=== PATIENT | male | born 1990 | race Caucasian/White ===

== ENCOUNTER 2018-01-26 01:07 | Observation (INO) | payer SELFPAY ==
[~2018-01-26] VITALS: Ht 185.4 cm; Wt 83.8 kg
[2018-01-26] VITALS (11 sets, daily range): BP systolic 125–173; BP diastolic 69–104; PULSE 72–112; RESP 15–18; TEMP 96.7–97.9; O2SAT 93–100
[~2018-01-26 01:07] MED LIST: NEXI10GR PO; PROC1TAB8 PO; RANI150 PO
[2018-01-26] MEDS ORDERED: SODIUM CHLOR 0.9% 1000 ML INJ 1,000 ML IV SCH ×2 (03:14→04:29)
[2018-01-26] MEDS ORDERED: SODIUM CHLORIDE 0.9% FLUSH 10 ML FLUSH IV FLUSH PRN ×3 (03:15→04:30)
[2018-01-26] MEDS ORDERED: PANTOPRAZOLE SODIUM 40 MG VIAL IVP ONE (03:15)
[2018-01-26] MEDS ORDERED: PROCHLORPERAZINE INJ 10 MG/2 ML VIAL IV PUSH ONE (03:15)
[2018-01-26] MEDS ORDERED: FAMOTIDINE 20 MG/2 ML VIAL IV PUSH ONE (03:15)
--- NOTE | 2018-01-26 03:17 | PD ---
HPI Chief Complaint: GI Complaint Time Seen by Provider: 03:10 Travel History International Travel<30 days: No Contact w/Intl Traveler<30days: No Traveled to known affect area: No History of Present Illness HPI The patient is a 27-year-old male that has been vomiting for 3 days. He has a history of this in the past. He denies any fever or diarrhea. He does not have any primary care physician or health analytics consultant. He denies vomiting any blood. He has midline epigastric pain described as burning pain, a 7/10. He denies any melanotic or bloody stools. PFSH Past Medical History Asthma: Yes ( A CHILD, RESOLVED) Cancer: No Cardiovascular Problems: No Diminished Hearing: No Endocrine: No Gastrointestinal Disorders: Yes GERD: Yes Genitourinary: No Hiatal Hernia: Yes ( A CHILD, REPAIRED AT THE AGE OF 2) Immune Disorder: No Musculoskeletal: No Neurologic: No Psychiatric: No Reproductive: No Respiratory: Yes Sickle Cell Disease: No Ulcer: No Influenza Vaccination: Yes Past Surgical History Abdominal Surgery: Yes (umbilical HERNIA) Cardiac Surgery: No Ear Surgery: No Endocrine Surgery: No Eye Surgery: No Genitourinary Surgery: No Oral Surgery: No Thoracic Surgery: No Other Surgery: Yes Social History Alcohol Use: Yes (2 TIMES PER WEEK) Tobacco Use: Yes (1/2 PPD) Substance Use: Yes (Marijuana) Allergies-Medications (Allergen,Severity, Reaction): Coded Allergies: amoxicillin (Verified Allergy, Severe, rash, 01/26/18) ondansetron (Verified Allergy, Intermediate, Nausea/Vomiting, 01/26/18) Reported Meds & Prescriptions Reported Meds & Active Scripts Active Review of Systems Except as stated in HPI: all other systems reviewed are Neg Physical Exam Narrative GENERAL: The patient appears moderately dehydrated, alert, oriented 3 in moderate apparent distress with his midline epigastric pain. He has vomiting here in the emergency department. His vital signs show blood pressure 142/104 with heart rate of 112 but otherwise are normal. SKIN: Focused skin assessment warm/dry. HEAD: Atraumatic. Normocephalic. EYES: Pupils equal and round. No scleral icterus. No injection or drainage. ENT: No nasal bleeding or discharge. Mucous membranes pink and moist. NECK: Trachea midline. No JVD. CARDIOVASCULAR: Regular rate and rhythm. No murmur appreciated. RESPIRATORY: No accessory muscle use. Clear to auscultation. Breath sounds equal bilaterally. GASTROINTESTINAL: Abdomen soft, with tenderness to direct palpation in the midline epigastrium, nondistended. Hepatic and splenic margins not palpable. No guarding or rebound is present. MUSCULOSKELETAL: No obvious deformities. No clubbing. No cyanosis. No edema. NEUROLOGICAL: Awake and alert. No obvious cranial nerve deficits. Motor grossly within normal limits. Normal speech. PSYCHIATRIC: Appropriate mood and affect; insight and judgment normal. Data Data Last Documented VS Vital Signs Date Time Temp Pulse Resp B/P (MAP) Pulse Ox O2 Delivery O2 Flow Rate FiO2 01/26/18 03:45 72 18 95 Room Air 01/26/18 01:45 97.9 Orders Orders Sodium Chlor 0.9% 1000 Ml Inj (Ns 1000 M (01/26/18 03:15) Prochlorperazine Inj (Compazine Inj) (01/26/18 03:15) Complete Blood Count With Diff (01/26/18 03:14) Comprehensive Metabolic Panel (01/26/18 03:14) Lipase (01/26/18 03:14) Urinalysis - C+S If Indicated (01/26/18 03:14) Iv Access Insert/Monitor (01/26/18 03:14) Ecg Monitoring (01/26/18 03:14) Oximetry (01/26/18 03:14) Pantoprazole Inj (Protonix Inj) (01/26/18 03:15) Sodium Chlor 0.9% 1000 Ml Inj (Ns 1000 M (01/26/18 03:14) Sodium Chloride 0.9% Flush (Ns Flush) (01/26/18 03:15) Famotidine Inj (Pepcid Inj) (01/26/18 03:15) Ct Abd/Pel W Iv Contrast(Rout) (01/26/18 04:17) Sodium Chloride 0.9% Flush (Ns Flush) (01/26/18 04:30) Labs Laboratory Tests Test 01/26/18 03:00 White Blood Count 11.8 TH/MM3 Red Blood Count 5.98 MIL/MM3 Hemoglobin 18.2 GM/DL Hematocrit 53.8 % Mean Corpuscular Volume 90.0 FL Mean Corpuscular Hemoglobin 30.4 PG Mean Corpuscular Hemoglobin Concent 33.8 % Red Cell Distribution Width 13.1 % Platelet Count 225 TH/MM3 Mean Platelet Volume 9.1 FL Neutrophils (%) (Auto) 67.2 % Lymphocytes (%) (Auto) 20.5 % Monocytes (%) (Auto) 11.3 % Eosinophils (%) (Auto) 0.3 % Basophils (%) (Auto) 0.7 % Neutrophils # (Auto) 8.0 TH/MM3 Lymphocytes # (Auto) 2.4 TH/MM3 Monocytes # (Auto) 1.3 TH/MM3 Eosinophils # (Auto) 0.0 TH/MM3 Basophils # (Auto) 0.1 TH/MM3 CBC Comment DIFF FINAL Differential Comment Blood Urea Nitrogen 14 MG/DL Creatinine 0.99 MG/DL Random Glucose 114 MG/DL Total Protein 8.8 GM/DL Albumin 4.7 GM/DL Calcium Level 9.9 MG/DL Alkaline Phosphatase 75 U/L Aspartate Amino Transf (AST/SGOT) 17 U/L Alanine Aminotransferase (ALT/SGPT) 28 U/L Total Bilirubin 3.4 MG/DL Sodium Level 134 MEQ/L Potassium Level 3.2 MEQ/L Chloride Level 95 MEQ/L Carbon Dioxide Level 25.5 MEQ/L Anion Gap 14 MEQ/L Estimat Glomerular Filtration Rate 91 ML/MIN Lipase 173 U/L MDM Medical Decision Making Medical Screen Exam Complete: Yes Emergency Medical Condition: Yes Medical Record Reviewed: Yes Interpretation(s) The CBC shows a white count of 11,800 with a hemoglobin of 18.2 and hematocrit of 53.8. The complete metabolic profile shows a total protein of 8.8 and total bilirubin of 3.4 and sodium of 134 with potassium 3.2 but is otherwise unremarkable. The lipase is normal. Differential Diagnosis Gastritis, gastroenteritis, cholecystitis, cholelithiasis with colic, dehydration, electrolyte disorder, pancreatitis Narrative Course The patient has gastritis. He still feels bad, even after his nausea is controlled with Compazine and he has had 3 L of fluid. His hemoglobin and hematocrit reflect hemoconcentration from the dehydration and his white count elevation is likely due to dehydration. It is very unlikely that by mouth pills or per rectal suppositories will work in this individual. In the past he has failed with at-home treatment and he knows he will fail again with at-home treatment. He has needed admission in the past with IV fluids/hydration and IV antibiotics. I discussed the patient with Dr. Duffy, the patient will be 23 hour observation to her. Diagnosis Primary Impression: Gastritis Additional Impression: Moderate dehydration Admitting Information Admitting Physician Requests: Observation Kole Fuentes MD Jan 26, 2018 03:17
[2018-01-26] MEDS: SODIUM CHLOR 0.9% 1000 ML INJ 1,000 ML IV SCH ×2 (03:28→05:07)
[2018-01-26 03:46] LABS: BASOPHIL # 0.1 TH/MM3 (0-0.2); BASOPHIL % 0.7 % (0.0-2.0); EOSINOPHIL % 0.3 % (0.0-4.0); HEMATOCRIT 53.8 % (39.0-51.0); HEMOGLOBIN 18.2 GM/DL (13.0-17.0); LYMPH % 20.5 % (9.0-44.0); LYMPHOCYTE # 2.4 TH/MM3 (1.0-4.8); MEAN CORPUSCULAR HEMOGLOBIN 30.4 PG (27.0-34.0); MEAN CORPUSCULAR HGB CONC 33.8 % (32.0-36.0); MEAN PLATELET VOLUME 9.1 FL (7.0-11.0); MONO % 11.3 % (0.0-8.0); MONOCYTE # 1.3 TH/MM3 (0-0.9); NEUT % 67.2 % (16.0-70.0); PLATELET COUNT 225 TH/MM3 (150-450); RED BLOOD COUNT 5.98 MIL/MM3 (4.50-5.90); RED CELL DISTRIBUTION WIDTH 13.1 % (11.6-17.2); WHITE BLOOD COUNT 11.8 TH/MM3 (4.0-11.0)
[2018-01-26 03:56] LABS: CHLORIDE 95 MEQ/L (98-107); SODIUM (NA) 134 MEQ/L (136-145)
[2018-01-26 04:00] LABS: ALBUMIN 4.7 GM/DL (3.4-5.0); BICARBONATE 25.5 MEQ/L (21.0-32.0); BLOOD UREA NITROGEN 14 MG/DL (7-18); CALCIUM 9.9 MG/DL (8.5-10.1); GLUCOSE,RANDOM 114 MG/DL (74-106)
[2018-01-26 04:03] LABS: ALT (GPT) 28 U/L (12-78); AST (GOT) 17 U/L (15-37); CREATININE 0.99 MG/DL (0.60-1.30); GLOMERULAR FILTRATION RATE 91 ML/MIN (>89)
[2018-01-26 04:05] LABS: TOTAL BILIRUBIN ADULT 3.4 MG/DL (0.2-1.0); TOTAL PROTEIN 8.8 GM/DL (6.4-8.2)
[2018-01-26 04:06] LABS: ALKALINE PHOSPHATASE 75 U/L (45-117)
[2018-01-26] MEDS ORDERED: MORPHINE SULFATE 4 MG/ML INJ IV PUSH PRN (04:30)
[2018-01-26] MEDS ORDERED: SENNOSIDES 8.6 MG TAB PO PRN (04:30)
[2018-01-26] MEDS ORDERED: LACTULOSE SYRUP 20 GM/30 ML CUP PO PRN (04:30)
[2018-01-26] MEDS ORDERED: ACETAMINOPHEN/HYDROcodone 325 MG/5 MG TAB PO PRN (04:30)
[2018-01-26] MEDS ORDERED: MAGNESIUM HYDROXIDE SUSP 30 ML CUP PO PRN (04:30)
[2018-01-26] MEDS ORDERED: BISACODYL 10 MG SUPP RECTAL PRN (04:30)
[2018-01-26] MEDS ORDERED: ACETAMINOPHEN 325 MG TAB PO PRN (04:30)
[2018-01-26] MEDS ORDERED: IOHEXOL 350 MG/ML 10 ML VIAL (for RAD DIAG) IVCONTRAST ONE (04:43)
--- NOTE | 2018-01-26 05:27 | RADRPT ---
EXAM DATE/TIME: 01/26/2018 04:49 [place] COMPARISON: No previous studies available for comparison. INDICATIONS : Epigastric pain with vomiting past 2 days. IV CONTRAST: 90 cc Omnipaque 350 (iohexol) IV ORAL CONTRAST: No oral contrast ingested. RADIATION DOSE: 9.47 CTDIvol (mGy) MEDICAL HISTORY : Gastroesophageal reflux disease. SURGICAL HISTORY : Umbilical hernia repair. ENCOUNTER: Initial ACUITY: 2 days PAIN SCALE: 7/10 LOCATION: epigastric TECHNIQUE: Volumetric scanning of the abdomen and pelvis was performed. Using automated exposure control and ad justment of the mA and/or kV according to patient size, radiation dose was kept as low as reasonably achievable to obtain optimal diagnostic quality images. DICOM format image data is available electro nically for review and comparison. FINDINGS: Examination of the lung bases demonstrates no abnormality. No pleural fluid is identified. No pulmona ry nodules are present. The liver and spleen are free of focal defects. The gallbladder and pancreas demonstrate no abnormality. The adrenal glands are normal. The kidneys demonstrate no evidence of carlyle id renal mass or hydronephrosis. No free fluid or abdominal masses are identified. No para-aortic barbara nopathy is seen. Examination of the right lower quadrant demonstrates no abnormality. The appendix is identified and appears normal. Examination of the pelvis demonstrates no evidence of free fluid or pelvic mass. No abnormally enlarg ed inguinal or retroperitoneal lymph nodes are present. The bladder is unremarkable. CONCLUSION: 1. No evidence of acute abdominal or pelvic process. No masses are identified. Dev Kerns MD on January 26, 2018 at 5:23 Board Certified Radiologist. This report was verified electronically.
[2018-01-26 05:29] LABS: BILIRUBIN, URINE NEG (NEG); BLOOD, URINE NEG (NEG); GLUCOSE,URINE NEG (NEG); KETONE, URINE 40 mg/dL (NEG); NITRITE,URINE NEG (NEG); URINE COLOR YELLOW (YELLW/STRAW); URINE LEUKOCYTE ESTERASE NEG (NEG)
[2018-01-26 05:37] LABS: RBC, URINE 0-2 /hpf (0-3); SQUAMOUS EPITHELIAL CELL URINE 0-5 /hpf (0-5); WBC, URINE 0-2 /hpf (0-5)
[2018-01-26] MEDS: DOCUSATE SODIUM 50 MG/SENNA 8.6 MG TAB PO SCH ×2 (08:23→20:26)
[2018-01-26] MEDS: SODIUM CHLORIDE 0.9% FLUSH 10 ML FLUSH IV FLUSH SCH ×2 (08:23→19:33)
--- NOTE | 2018-01-26 09:58 | HHI.HP ---
[facility] Primary Care Physician No Primary Care Physician Admission Diagnosis Gastritis, moderate dehydration Diagnoses: Chief Complaint: Nausea, vomiting. Travel History International Travel<30 Days: No Contact w/Intl Traveler <30 Da: No Traveled to Known Affected Are: No History of Present Illness This is a 27-year-old male with past medical history of gastritis and previous history of nausea and vomiting presents complaining of intractable nausea and vomiting which started 3 days ago on Sunday. The patient states that he had a chili hotdog to eat and then afterwards felt very nauseous and started vomiting. Patient states that he had umbilical pain which she describes a stabbing, colicky, nonradiating without any orquidea alleviating or aggravating factors. Patient denies fevers but states he had some chills. Patient describes vomiting as bilious. Patient states that he has been feeling nauseous for a long time and has had multiple studies including an EGD last year. The patient states that he smokes marijuana twice a day and he has been doing that for a long time. The patient states that he feels marijuana helps his nausea that he experiences very often. Review of Systems As per HPI, other systems reviewed by me and negative. Past Family Social History Past Medical History 1. Gastritis. 2. Previous history of intractable nausea and vomiting. 3. History of alcohol abuse as per medical records. 4. Chronic marijuana use. Past Surgical History 1. Hernia repair when he was 2 years old. 2. Cholecystectomy. Reported Medications None Allergies: Coded Allergies: amoxicillin (Verified Allergy, Severe, rash, 01/26/18) ondansetron (Verified Allergy, Intermediate, Nausea/Vomiting, 01/26/18) Active Ordered Medications Current Medications Medications (Trade) Dose Ordered Sig/Orlin Route Start Time Stop Time Status Last Admin Sodium Chloride 1,000 ml @ 100 mls/hr Q10H IV 01/26/18 04:29 (NS Flush) 2 ml UNSCH PRN IV FLUSH 01/26/18 04:30 (NS Flush) 2 ml BID IV FLUSH 01/26/18 09:00 (Reglan Inj) 10 mg Q6H PRN IV PUSH 4/14/18 04:30 (Tylenol) 650 mg Q6H PRN PO 01/26/18 04:30 ([place] 5-325 Mg) 1 tab Q4H PRN PO 01/26/18 04:30 (Morphine Inj) 2 mg Q3H PRN IV PUSH 01/26/18 04:30 (Alie-Colace) 1 tab BID PO 01/26/18 09:00 (Milk Of Magnesia Liq) 30 ml Q12H PRN PO 01/26/18 04:30 (Senokot) 17.2 mg Q12H PRN PO 01/26/18 04:30 (Dulcolax Supp) 10 mg DAILY PRN RECTAL 01/26/18 04:30 (Lactulose Liq) 30 ml DAILY PRN PO 01/26/18 04:30 Family History Denies family history of hypertension, hyperlipidemia, cancer. Social History The patient smokes half pack per day. The patient drinks alcohol occasionally The patient smokes marijuana times per day. Physical Exam Vital Signs Vital Signs Date Time Temp Pulse Resp B/P (MAP) Pulse Ox O2 Delivery O2 Flow Rate FiO2 01/26/18 08:00 97.0 83 15 139/100 (113) 94 01/26/18 07:07 01/26/18 05:56 94 18 125/79 (94) 97 Room Air 01/26/18 05:00 82 18 148/81 (103) 93 Room Air 01/26/18 03:45 72 18 95 Room Air 01/26/18 03:44 72 18 173/96 (121) 95 Room Air 01/26/18 02:45 102 18 125/89 (101) 99 Room Air 01/26/18 01:45 18 01/26/18 01:45 97.9 91 18 161/101 (121) 98 01/26/18 01:12 97.9 112 16 142/104 (117) 96 Physical Exam GENERAL: This is a well-nourished, well-developed patient, in no apparent distress. SKIN: No rashes, ecchymoses or lesions. Cool and dry. HEAD: Atraumatic. Normocephalic. No temporal or scalp tenderness. EYES: Pupils equal round and reactive. Extraocular motions intact. No scleral icterus. No injection or drainage. ENT: Nose without bleeding, purulent drainage or septal hematoma. Throat without erythema, tonsillar hypertrophy or exudate. Uvula midline. Airway patent. NECK: Trachea midline. No JVD or lymphadenopathy. Supple, nontender, no meningeal signs. CARDIOVASCULAR: Regular rate and rhythm without murmurs, gallops, or rubs. RESPIRATORY: Clear to auscultation. Breath sounds equal bilaterally. No wheezes , rales, or rhonchi. GASTROINTESTINAL: Abdomen soft, mildly tender to palpation of periumbilical region, nondistended. No hepato-splenomegaly, or palpable masses. No guarding. MUSCULOSKELETAL: Extremities without clubbing, cyanosis, or edema. No joint tenderness, effusion, or edema noted. No calf tenderness. Negative Homans sign bilaterally. NEUROLOGICAL: Awake and alert. Cranial nerves II through XII intact. Motor and sensory grossly within normal limits. Five out of 5 muscle strength in all muscle groups. Normal speech. Laboratory Laboratory Tests Test 01/26/18 03:00 01/26/18 05:00 White Blood Count 11.8 Red Blood Count 5.98 Hemoglobin 18.2 Hematocrit 53.8 Mean Corpuscular Volume 90.0 Mean Corpuscular Hemoglobin 30.4 Mean Corpuscular Hemoglobin Concent 33.8 Red Cell Distribution Width 13.1 Platelet Count 225 Mean Platelet Volume 9.1 Neutrophils (%) (Auto) 67.2 Lymphocytes (%) (Auto) 20.5 Monocytes (%) (Auto) 11.3 Eosinophils (%) (Auto) 0.3 Basophils (%) (Auto) 0.7 Neutrophils # (Auto) 8.0 Lymphocytes # (Auto) 2.4 Monocytes # (Auto) 1.3 Eosinophils # (Auto) 0.0 Basophils # (Auto) 0.1 CBC Comment DIFF FINAL Differential Comment Blood Urea Nitrogen 14 Creatinine 0.99 Random Glucose 114 Total Protein 8.8 Albumin 4.7 Calcium Level 9.9 Alkaline Phosphatase 75 Aspartate Amino Transf (AST/SGOT) 17 Alanine Aminotransferase (ALT/SGPT) 28 Total Bilirubin 3.4 Sodium Level 134 Potassium Level 3.2 Chloride Level 95 Carbon Dioxide Level 25.5 Anion Gap 14 Estimat Glomerular Filtration Rate 91 Lipase 173 Urine Color YELLOW Urine Turbidity CLEAR Urine pH 6.0 Urine Specific [place] LESS/EQUAL 1.005 Urine Protein NEG Urine Glucose (UA) NEG Urine Ketones 40 Urine Occult Blood NEG Urine Nitrite NEG Urine Bilirubin NEG Urine Urobilinogen 0.2 Urine Leukocyte Esterase NEG Urine RBC 0-2 Urine WBC 0-2 Urine Squamous Epithelial Cells 0-5 Urine Bacteria NONE Microscopic Urinalysis Comment CULT NOT INDICATED Result Diagram: 01/26/1829901/26/18299 Imaging Last Impressions Abdomen/Pelvis CT 01/26/18416 Signed Impressions: Service Date/Time: Friday, January 26, 2018 04:49 - CONCLUSION: 1. No evidence of acute abdominal or pelvic process. No masses are identified. MD Debbie Whaley VTE Risk Assessment Debbie VTE Risk Assessment: No/Low Risk (score <= 1) Caprini Risk Assessment Model Point Value = 1 Point Value = 2 Point Value = 3 Point Value = 5 Age 41-60 Minor surgery BMI > 25 kg/m2 Swollen legs Varicose veins or History of unexplained or recurrent spontaneous Oral contraceptives or hormone replacement Sepsis (< 1 month) Serious lung disease, including pneumonia (< 1 month) Abnormal pulmonary function Acute myocardial infarction Congestive heart failure (< 1 month) History of inflammatory bowel disease Medical patient at bed rest Age 61-74 Arthroscopic surgery Major open surgery (> 45 min) Laparoscopic surgery (> 45 min) Malignancy Confined to bed (> 72 hours) Immobilizing plaster cast Central venous access Age >= 75 History of VTE Family history of VTE Factor V Leiden Prothrombin [id number] Lupus anticoagulant Anticardiolipin antibodies Elevated serum homocysteine Heparin-induced thrombocytopenia Other congenital or acquired thrombophilia Stroke (< 1 month) Elective arthroplasty Hip, pelvis, or leg fracture Acute spinal cord injury (< 1 month) Prophylaxis Regimen Total Risk Factor Score Risk Level Prophylaxis Regimen 0-1 Low Early ambulation 2 Moderate Order ONE of the following: *Sequential Compression Device (SCD) *Heparin 5000 units SQ BID 3-4 Higher Order ONE of the following medications: *Heparin 5000 units SQ TID *Enoxaparin/Lovenox 40 mg SQ daily (WT < 150 kg, CrCl > 30 mL/min) *Enoxaparin/Lovenox 30 mg SQ daily (WT < 150 kg, CrCl > 10-29 mL/min) *Enoxaparin/Lovenox 30 mg SQ BID (WT < 150 kg, CrCl > 30 mL/min) AND/OR *Sequential Compression Device (SCD) 5 or more Highest Order ONE of the following medications: *Heparin 5000 units SQ TID (Preferred with Epidurals) *Enoxaparin/Lovenox 40 mg SQ daily (WT < 150 kg, CrCl > 30 mL/min) *Enoxaparin/Lovenox 30 mg SQ daily (WT < 150 kg, CrCl > 10-29 mL/min) *Enoxaparin/Lovenox 30 mg SQ BID (WT < 150 kg, CrCl > 30 mL/min) AND *Sequential Compression Device (SCD) Assessment and Plan Problem List: (1) Intractable nausea and vomiting ICD Code: R11.10 - Intractable nausea and vomiting Status: Acute (2) Hypokalemia ICD Code: E87.6 - Hypokalemia Status: Acute (3) Elevated bilirubin ICD Code: E80.6 - Elevated bilirubin Status: Acute (4) Hyponatremia ICD Code: E87.1 - Hypo-osmolality and hyponatremia Status: Acute (5) Marijuana abuse ICD Code: F12.10 - Cannabis abuse, uncomplicated Status: Chronic (6) Smoking 1/2 pack a day or less ICD Code: F17.210 - Nicotine dependence, cigarettes, uncomplicated Status: Chronic Assessment and Plan This is a 27-year-old male with past medical history of alcohol abuse, chronic marijuana use and long-standing history of nausea with vomiting. Presents to [facility] due to intractable nausea vomiting abdominal pain. Place the patient outpatient observation, supportive care with IV fluids. IV Zofran for nausea vomiting. Differential diagnosis includes gastritis, gastroenteritis, gastroparesis, cannabis hyperemesis syndrome. Continue pain control with [place] and morphine IV. GI consultation Clear liquid diet. Hypokalemia likely secondary to decreased oral intake and nausea and vomiting. Replace potassium and monitor BMP. Hyponatremia likely secondary to dehydration. Continue IV fluids in the form of normal saline Patient has elevated bilirubin, will check bilirubin components and a liver ultrasound. Advised marijuana cessation. Advised smoking cessation. SCDs for DVT prophylaxis. Code Status Full code Discussed Condition With Patient. Edgar Cox MD Jan 26, 2018 09:58
[2018-01-26] MEDS ORDERED: POTASSIUM CHLORIDE 10 MEQ CONTROLLED RELEASE TAB PO ONE (10:00)
[2018-01-26] MEDS ORDERED: PANTOPRAZOLE SOD 40 MG DELAYED RELEASE TAB PO SCH (10:30)
[2018-01-26 11:28] LABS: DIRECT BILIRUBIN ADULT 0.3 MG/DL (0.0-0.2)
[2018-01-26 11:30] LABS: INDIRECT BILIRUBIN 2.8 MG/DL (0.0-0.8); TOTAL BILIRUBIN ADULT 3.1 MG/DL (0.2-1.0)
[2018-01-26] MEDS: METOCLOPRAMIDE HCL 10 MG/2 ML VIAL IV PUSH PRN (11:38)
[2018-01-26] MEDS: NS + KCL 20 MEQ INJ 1,000 ML IV SCH ×2 (11:39→20:26)
--- NOTE | 2018-01-26 20:10 | MB ---
cc: Verna Monk MD, Ammar MD DATE: 01/26/2018 REFERRING PHYSICIAN: Dr. Duffy REASON FOR REFERRAL: Nausea and vomiting. HISTORY OF PRESENT ILLNESS: Thank you for the consultation. A 27-year-old male who had history of nausea or vomiting since Sunday after supposedly eating a chili dog. The patient stated that it was severe. He had ____. The patient did not have any hematemesis and currently feels better. He is tolerating his diet. The patient stated that this was accompanied with abdominal discomfort, nonradiating. He apparently had a similar problem in the past. Every few months, he has that and he had multiple episodes of hospital visits and admissions. The patient has been scoped in the past. He said he takes Phenergan from time to time when the symptoms happen and he can control this sometimes. He also smokes marijuana twice daily plus 1/2 a pack a day. He said that the marijuana helped his nausea. Currently, the patient is feeling better. He ate lunch without any nausea or vomiting. REVIEW OF SYSTEMS: All 12-point negative except HPI. PAST MEDICAL HISTORY, SURGICAL HISTORY: 1. Hernia repair and cholecystectomy 2 years ago. 2. History of gastritis, most likely cyclic vomiting syndrome. 3. Alcohol abuse. 4. Chronic use of tobacco and marijuana. ALLERGIES: AMOXICILLIN AND ONDANSETRON. MEDICATIONS: Reviewed in the chart. FAMILY HISTORY: Negative. REVIEW OF SYSTEMS: All 12-point negative except HPI. PHYSICAL EXAMINATION: GENERAL: Alert, oriented, in no acute distress. VITAL SIGNS: Stable. HEENT: Pupils round, reactive to light. NECK: Supple. CHEST: Clear to auscultation and percussion. CARDIAC: Regular rate and rhythm. No murmur or gallop at this time. ABDOMEN: Minimal discomfort in the mid epigastric area, otherwise, positive bowel sounds. No hepatosplenomegaly. No other abnormality. EXTREMITIES: No edema, clubbing or cyanosis. NEUROLOGIC: Neurologically intact. PSYCHIATRIC: Psychologically appropriate. LABORATORY DATA: White count 11.8, hemoglobin 18.2, platelets 225. Liver function tests are normal except total bilirubin 3.1 and indirect bilirubin 2.8. Toxicology positive for marijuana. IMAGING STUDIES: CT scan unremarkable. ASSESSMENT AND PLAN: 1. A 27-year-old male with nausea, vomiting, most likely related to marijuana. Cannot rule out possibility of gastroenteritis, but unlikely. The patient's symptoms have resolved at this time and he is tolerating food well. 2. The patient was advised to avoid marijuana completely and stop smoking and drinking. 3. If he tolerates food, he can be discharged from gastrointestinal perspective. 4. 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 I reviewed his old records as far as liver function test and it is always fluctuating consistent with that when the patient is under stress. 5. A followup can be done to ensure that he is not getting worse and this can be done as an outpatient. MD CECELIA Knight//[email or web address] , 06:16 PM , 06:46 PM
[2018-01-27] VITALS: BP 118/59; PULSE 82; RESP 16; TEMP 97.9; O2SAT 99
[2018-01-27] MEDS: METOCLOPRAMIDE HCL 10 MG/2 ML VIAL IV PUSH PRN (02:54)
[2018-01-27 07:52] LABS: AUTOMATED NEUTROPHIL # 4.4 TH/MM3 (1.8-7.7); BASOPHIL # 0.2 TH/MM3 (0-0.2); BASOPHIL % 2.1 % (0.0-2.0); EOSINOPHIL # 0.1 TH/MM3 (0-0.4); EOSINOPHIL % 1.3 % (0.0-4.0); HEMATOCRIT 43.8 % (39.0-51.0); HEMOGLOBIN 14.6 GM/DL (13.0-17.0); LYMPH % 26.6 % (9.0-44.0); MEAN CELL VOLUME 92.4 FL (80.0-100.0); MEAN CORPUSCULAR HEMOGLOBIN 30.8 PG (27.0-34.0); MEAN CORPUSCULAR HGB CONC 33.3 % (32.0-36.0); MEAN PLATELET VOLUME 8.6 FL (7.0-11.0); MONO % 8.8 % (0.0-8.0); MONOCYTE # 0.6 TH/MM3 (0-0.9); NEUT % 61.2 % (16.0-70.0); PLATELET COUNT 163 TH/MM3 (150-450); RED BLOOD COUNT 4.74 MIL/MM3 (4.50-5.90); RED CELL DISTRIBUTION WIDTH 13.4 % (11.6-17.2); WHITE BLOOD COUNT 7.4 TH/MM3 (4.0-11.0)
[2018-01-27 08:00] VITALS: BP 128/73; PULSE 72; RESP 16; TEMP 97; O2SAT 97
[2018-01-27 08:26] LABS: ALBUMIN 3.8 GM/DL (3.4-5.0); ALKALINE PHOSPHATASE 56 U/L (45-117); ALT (GPT) 22 U/L (12-78); AST (GOT) 11 U/L (15-37); BLOOD UREA NITROGEN 6 MG/DL (7-18); CALCIUM 8.6 MG/DL (8.5-10.1); CHLORIDE 106 MEQ/L (98-107); CREATININE 0.73 MG/DL (0.60-1.30); GLOMERULAR FILTRATION RATE 129 ML/MIN (>89); GLUCOSE,RANDOM 91 MG/DL (74-106); SODIUM (NA) 140 MEQ/L (136-145); TOTAL PROTEIN 6.7 GM/DL (6.4-8.2)
[2018-01-27] MEDS ORDERED: PROM25TA10 PO (08:52)
--- NOTE | 2018-01-27 08:53 | HHI.DCPOC ---
Discharge Care Plan Diagnosis: (1) Gastritis Goals to Promote Your Health * To prevent worsening of your condition and complications * To maintain your health at the optimal level Directions to Meet Your Goals Take your medications as prescribed Follow your dietary instruction Follow activity as directed Keep your appointments as scheduled Take your immunizations and boosters as scheduled If your symptoms worsen call your PCP, if no PCP go to Urgent Care Center or Emergency Room Smoking is Dangerous to Your Health. Avoid second hand smoke Call the 24-hour hour crisis hotline for domestic abuse at Bhavin Fuentes Jan 27, 2018 08:53
--- NOTE | 2018-01-27 09:00 | HHI.DS ---
Discharge Summary Admission Date Jan 26, 2018 at 04:42 Discharge Date: Jan 27, 2018 Admitting Diagnosis Gastritis, moderate dehydration (1) Intractable nausea and vomiting ICD Code: R11.10 - Intractable nausea and vomiting Status: Acute (2) Hypokalemia ICD Code: E87.6 - Hypokalemia Status: Acute (3) Elevated bilirubin ICD Code: E80.6 - Elevated bilirubin Status: Acute (4) Hyponatremia ICD Code: E87.1 - Hypo-osmolality and hyponatremia Status: Acute (5) Marijuana abuse ICD Code: F12.10 - Cannabis abuse, uncomplicated Status: Chronic (6) Smoking 1/2 pack a day or less ICD Code: F17.210 - Nicotine dependence, cigarettes, uncomplicated Status: Chronic Procedures None Brief History - From Admission This is a 27-year-old male with past medical history of gastritis and previous history of nausea and vomiting presents complaining of intractable nausea and vomiting which started 3 days ago on Sunday. The patient states that he had a chili hotdog to eat and then afterwards felt very nauseous and started vomiting. Patient states that he had umbilical pain which she describes a stabbing, colicky, nonradiating without any orquidea alleviating or aggravating factors. Patient denies fevers but states he had some chills. Patient describes vomiting as bilious. Patient states that he has been feeling nauseous for a long time and has had multiple studies including an EGD last year. The patient states that he smokes marijuana twice a day and he has been doing that for a long time. The patient states that he feels marijuana helps his nausea that he experiences very often. CBC/BMP: 01/27/18 0655 01/27/18 0655 Significant Findings Laboratory Tests Test 01/26/18 03:00 01/26/18 05:00 01/27/18 06:55 White Blood Count 11.8 TH/MM3 (4.0-11.0) Red Blood Count 5.98 MIL/MM3 (4.50-5.90) Hemoglobin 18.2 GM/DL (13.0-17.0) Hematocrit 53.8 % (39.0-51.0) Monocytes (%) (Auto) 11.3 % (0.0-8.0) 8.8 % (0.0-8.0) Neutrophils # (Auto) 8.0 TH/MM3 (1.8-7.7) Monocytes # (Auto) 1.3 TH/MM3 (0-0.9) Random Glucose 114 MG/DL (74-106) Total Protein 8.8 GM/DL (6.4-8.2) Total Bilirubin 3.4 MG/DL (0.2-1.0) 2.0 MG/DL (0.2-1.0) Sodium Level 134 MEQ/L (136-145) Potassium Level 3.2 MEQ/L (3.5-5.1) Chloride Level 95 MEQ/L (98-107) Direct Bilirubin 0.3 MG/DL (0.0-0.2) Indirect Bilirubin 2.8 MG/DL (0.0-0.8) Urine Ketones 40 mg/dL (NEG) Basophils (%) (Auto) 2.1 % (0.0-2.0) Blood Urea Nitrogen 6 MG/DL (7-18) Aspartate Amino Transf (AST/SGOT) 11 U/L (15-37) Imaging Last Impressions Abdomen/Pelvis CT 01/26/18 0417 Signed Impressions: Service Date/Time: Friday, January 26, 2018 04:49 - CONCLUSION: 1. No evidence of acute abdominal or pelvic process. No masses are identified. Dev Kerns MD PE at Discharge GENERAL: Well-developed, well-nourished, in no acute distress. alert and orientated HEENT: Head is normocephalic without any lesions or masses noted. Facial features are symmetric. Eyes: Extraocular muscles are intact. Conjunctivae were clear. NECK: Supple without any masses. Trachea midline no deviation. No JVD, CARDIAC: Regular rhythm, regular rate. S1/S2 are heard. No murmurs gallops or rubs. LUNGS: Clear to auscultation bilaterally. No wheeze, rhonchi or rales. No use of accessory muscles on inspiration or expiration. ABDOMEN: Soft, nontender. Nondistended. Bowel sounds heard in all 4 quadrants. No organomegaly or masses. Negative rebound, negative guarding EXTREMITIES: No edema, pulses are equal bilaterally. No cyanosis or clubbing NEUROLOGY: Mood and affect appear appropriate. Cranial nerves II through XII grossly intact. Moving all extremities, speech is clear Hospital Course 27-year-old male who review presented to hospital with 3 day history of nausea, vomiting. Patient states that his symptoms started after he ate a chili dog. He does have chronic abdominal issues with nausea and over the last year he has had endoscopy performed. Patient was recommended observation in the hospital for further recommendations. Patient was started on IV fluids, antinausea medication. Patient tolerated treatment well. GI consult to the patient and indicated that patient needs to quit smoking marijuana due to the cyclic vomiting associated with marijuana use. Patient is doing well. Tolerated diet yesterday and this morning. He has been cleared by pusher runner for discharge. We will plan discharge accordingly. Patient should follow-up with his primary care doctor as well as GI physician if symptoms persist or recur. Pt Condition on Discharge: Stable Discharge Disposition: Discharge Home Discharge Time: > 30 minutes Discharge Instructions DIET: Follow Instructions for: As Tolerated, No Restrictions Activities you can perform: Regular-No Restrictions Follow up Referrals: PCP Follow-up - 1 Week New Medications: Promethazine (Phenergan) 25 Mg Tablet 25 MG PO Q6H PRN for NAUSEA OR VOMITING, #12 TAB 0 Refills Bhavin Fuentes Jan 27, 2018 09:00
== END 2018-01-27 10:36 | disposition home or self-care (01) ==
LOC: PHED 01:07 → PHEDA 04:42 → PH3B 07:20
PROVIDERS: ADMIT Hospitalist; ATTEND Hospitalist
DX: K29.70 Gastritis, unspecified, without bleeding (principal); R11.2 Nausea with vomiting, unspecified; E87.6 Hypokalemia; E86.0 Dehydration; E87.1 Hypo-osmolality and hyponatremia; E80.4 Gilbert syndrome; E80.6 Other disorders of bilirubin metabolism; F12.10 Cannabis abuse, uncomplicated; F17.210 Nicotine dependence, cigarettes, uncomplicated
CPT/HCPCS: 74177; 80053; 81001; 82247; 82248; 83690; 85025; 96361; 96365; 96375; 99285; C9113; G0378; J0780; J2765; J3480; J7030; Q9967

== ENCOUNTER 2018-03-23 16:21 | Emergency (ER) | payer SELFPAY ==
[~2018-03-23] VITALS: Ht 185.4 cm; Wt 83.3 kg
[~2018-03-23 16:21] MED LIST changes: -NEXI10GR PO; -PROC1TAB8 PO; +PROM25TA10 PO; -RANI150 PO
[2018-03-23 16:33] VITALS: BP 153/100; PULSE 101; RESP 16; TEMP 98.8; O2SAT 97
--- NOTE | 2018-03-23 16:56 | PD ---
HPI . Vomiting Chief Complaint: GI Complaint Time Seen by Provider: 16:46 Travel History International Travel<30 days: No Contact w/Intl Traveler<30days: No Traveled to known affect area: No History of Present Illness HPI Patient presents with chief complaint of vomiting. Onset initially was 2 days ago. He reports many episodes of emesis that day. No diarrhea. He felt tired the next day (yesterday) but the vomiting had stopped. It recurred today. He states that he has had too numerous to count episodes of emesis today. No diarrhea. No fever. No known sick contacts. His only associated symptoms are mild abdominal pain and diaphoresis. PFSH Past Medical History Asthma: Yes ( A CHILD, RESOLVED) Cancer: No Cardiovascular Problems: No Diminished Hearing: No Endocrine: No Gastrointestinal Disorders: Yes GERD: Yes Genitourinary: No Hiatal Hernia: Yes ( A CHILD, REPAIRED AT THE AGE OF 2) Immune Disorder: No Musculoskeletal: No Neurologic: No Psychiatric: No Reproductive: No Respiratory: Yes Sickle Cell Disease: No Ulcer: No ?: Not Past Surgical History Abdominal Surgery: Yes (umbilical HERNIA) Cardiac Surgery: No Cholecystectomy: Yes Ear Surgery: No Endocrine Surgery: No Eye Surgery: No Genitourinary Surgery: No Oral Surgery: No Thoracic Surgery: No Other Surgery: Yes Social History Alcohol Use: Yes (2 TIMES PER WEEK) Tobacco Use: Yes (1/2 PPD) Substance Use: Yes (Marijuana) Allergies-Medications (Allergen,Severity, Reaction): Coded Allergies: amoxicillin (Verified Allergy, Severe, rash, 03/23/18) ondansetron (Verified Allergy, Intermediate, Nausea/Vomiting, 03/23/18) Reported Meds & Prescriptions Reported Meds & Active Scripts Active Phenergan Supp (Promethazine HCl) 25 Mg Supp 25 Mg RECTAL Q4H PRN Phenergan (Promethazine HCl) 25 Mg Tablet 25 Mg PO Q6H PRN Review of Systems Except as stated in HPI: all other systems reviewed are Neg Physical Exam Narrative GENERAL: Patient does not look like he feels very well. He is lying very still on the stretcher with an emesis bag on his chest. SKIN: Cool and diaphoretic. HEAD: Normocephalic. EYES: Pupils equal and round. Extraocular movements are intact. No scleral icterus. ENT: Mucous membranes pink but dry. NECK: Supple. Full range of motion without pain.. CARDIOVASCULAR: Regular rate and rhythm. Mild tachycardia. RESPIRATORY: No accessory muscle use. Clear to auscultation. Breath sounds equal bilaterally. GASTROINTESTINAL: Abdomen soft. Nontender. Bowel sounds present. Nondistended. MUSCULOSKELETAL: No obvious deformities. Normal muscle tone. NEUROLOGICAL: Awake and alert. No obvious cranial nerve deficits. Motor grossly within normal limits. Normal speech. PSYCHIATRIC: Appropriate mood and affect; insight and judgment normal. Data Data Last Documented VS Vital Signs Date Time Temp Pulse Resp B/P (MAP) Pulse Ox O2 Delivery O2 Flow Rate FiO2 03/23/18 18:30 65 18 155/89 (111) 100 Room Air 03/23/18 16:33 98.8 Orders Orders ^ Saline Lock (03/23/18 16:52) Sodium Chlor 0.9% 1000 Ml Inj (Ns 1000 M (03/23/18 17:00) Sodium Chlor 0.9% 1000 Ml Inj (Ns 1000 M (03/23/18 17:00) Metoclopramide Inj (Reglan Inj) (03/23/18 17:00) Diphenhydramine Inj (Benadryl Inj) (03/23/18 19:00) MDM Medical Decision Making Medical Screen Exam Complete: Yes Emergency Medical Condition: Yes Differential Diagnosis Differential diagnosis includes but is not limited to viral gastritis, food poisoning, pancreatitis, pneumonia, hepatitis, acute coronary syndrome, Narrative Course Patient presents with nausea and vomiting. He reports numerous episodes today. Patient states that he has been given Zofran in the past and that his vomiting actually gets worse. He states that Reglan has worked well for him in the past. He will be given 2 L of fluid along with IV Reglan. The patient is on his second liter of fluids. He got better for a while but states that the nausea is recurring. I will have him sip on some domingo binu. I have also given him a dose of IV Benadryl. The patient is now resting comfortably. I will discharge him to home with a prescription for Phenergan suppositories. Diagnosis Primary Impression: Intractable nausea and vomiting Qualified Codes: R11.2 - Nausea with vomiting, unspecified Patient Instructions: Acute Nausea and Vomiting (DC), General Instructions Med/Other Pt SpecificInfo: Prescription(s) given Scripts Promethazine Supp (Phenergan Supp) 25 Mg Supp 25 MG RECTAL Q4H Y for NAUSEA OR VOMITING, #6 SUPP 0 Refills Prov: Rosana Marcus MD 03/23/18 Disposition: 01 DISCHARGE HOME Condition: Stable Rosana Marcus MD Mar 23, 2018 16:56
[2018-03-23] MEDS ORDERED: SODIUM CHLOR 0.9% 1000 ML INJ 1,000 ML IV ONE ×2 (17:00)
[2018-03-23] MEDS ORDERED: METOCLOPRAMIDE HCL 10 MG/2 ML VIAL IV PUSH ONE (17:00)
[2018-03-23 18:30] VITALS: BP 155/89; PULSE 65; RESP 18; O2SAT 100
[2018-03-23] MEDS ORDERED: PROM1SUP7 RECTAL (18:47)
[2018-03-23] MEDS ORDERED: diphenhydrAMINE HCL 50 MG/ML VIAL IV PUSH ONE (19:00)
== END 2018-03-23 19:36 | disposition home or self-care (01) ==
LOC: PHED 16:21
DX: R11.2 Nausea with vomiting, unspecified (principal); R10.9 Unspecified abdominal pain; R61 Generalized hyperhidrosis; K21.9 Gastro-esophageal reflux disease without esophagitis; F17.200 Nicotine dependence, unspecified, uncomplicated; F12.90 Cannabis use, unspecified, uncomplicated
CPT/HCPCS: 96361; 96374; 96375; 99284; J1200; J2765; J7030

== ENCOUNTER 2018-03-25 09:57 | Emergency (ER) | payer SELFPAY ==
[~2018-03-25 09:57] MED LIST changes: +PROM1SUP7 RECTAL
[2018-03-25 10:00] VITALS: BP 178/100; PULSE 96; RESP 18; TEMP 98; O2SAT 98
[2018-03-25] MEDS ORDERED: METOCLOPRAMIDE HCL 10 MG/2 ML VIAL IV PUSH ONE ×3 (10:15→12:00)
[2018-03-25] MEDS ORDERED: SODIUM CHLOR 0.9% 1000 ML INJ 1,000 ML IV ONE ×2 (10:15)
--- NOTE | 2018-03-25 10:17 | PD ---
HPI Chief Complaint: Abdominal Pain Time Seen by Provider: 10:06 Travel History International Travel<30 days: No Contact w/Intl Traveler<30days: No Traveled to known affect area: No History of Present Illness HPI This 27-year-old male is complaining of epigastric pain and vomiting. Says his been having these symptoms since . He has had attacks like this in the past. He was admitted in January with these symptoms and at that time he was seen by Dr. Monk. It was thought and might be related to cyclical vomiting. Patient says he only uses occasional marijuana. He has not been having these symptoms for years. He has had a cholecystectomy 2 years ago. He says that the Zofran does not help him at all. He has prescriptions for Reglan and Phenergan at home. He has been vomiting in spite of the Phenergan. He denies recent marijuana use. He was here in January with similar symptoms and had a CT scan which was read as negative PFS Past Medical History Asthma: Yes ( A CHILD, RESOLVED) Cancer: No Cardiovascular Problems: No Diminished Hearing: No Endocrine: No Gastrointestinal Disorders: Yes GERD: Yes Genitourinary: No Hiatal Hernia: Yes ( A CHILD, REPAIRED AT THE AGE OF 2) Immune Disorder: No Musculoskeletal: No Neurologic: No Psychiatric: No Reproductive: No Respiratory: Yes Sickle Cell Disease: No Ulcer: No Influenza Vaccination: Yes Past Surgical History Abdominal Surgery: Yes (umbilical HERNIA) Cardiac Surgery: No Cholecystectomy: Yes Ear Surgery: No Endocrine Surgery: No Eye Surgery: No Genitourinary Surgery: No Oral Surgery: No Thoracic Surgery: No Other Surgery: Yes Social History Alcohol Use: Yes (2 TIMES PER WEEK) Tobacco Use: Yes (1/2 PPD) Substance Use: Yes (Marijuana) Allergies-Medications (Allergen,Severity, Reaction): Coded Allergies: amoxicillin (Verified Allergy, Severe, rash, 03/25/18) ondansetron (Verified Allergy, Intermediate, Nausea/Vomiting, 03/25/18) Reported Meds & Prescriptions Reported Meds & Active Scripts Active Phenergan Supp (Promethazine HCl) 25 Mg Supp 25 Mg RECTAL Q4H PRN Phenergan (Promethazine HCl) 25 Mg Tablet 25 Mg PO Q6H PRN Review of Systems General / Constitutional: No: Fever, Chills Eyes: No: Diploplia, Blurred Vision HENT: No: Headaches, Vertigo Cardiovascular: No: Chest Pain or Discomfort, Palpitations Respiratory: No: Cough, Shortness of Breath Gastrointestinal: Positive: Nausea, Vomiting, Abdominal Pain, No: Diarrhea Genitourinary: No: Urgency, Frequency Musculoskeletal: No: Myalgias, Arthralgias Skin: No Rash, No Itching Psychiatric: No: Anxiety Hematologic/Lymphatic: No: Easy Bruising Physical Exam Narrative GENERAL: Well-developed male SKIN: Focused skin assessment warm/dry. HEAD: Atraumatic. Normocephalic. EYES: Pupils equal and round. No scleral icterus. No injection or drainage. ENT: No nasal bleeding or discharge. Mucous membranes pink and moist. NECK: Trachea midline. No JVD. CARDIOVASCULAR: Regular rate and rhythm. No murmur appreciated. RESPIRATORY: No accessory muscle use. Clear to auscultation. Breath sounds equal bilaterally. GASTROINTESTINAL: Abdomen soft, there is epigastric tenderness, nondistended. Hepatic and splenic margins not palpable. MUSCULOSKELETAL: No obvious deformities. No clubbing. No cyanosis. No edema. NEUROLOGICAL: Awake and alert. No obvious cranial nerve deficits. Motor grossly within normal limits. Normal speech. PSYCHIATRIC: Appropriate mood and affect; insight and judgment normal. Data Data Last Documented VS Vital Signs Date Time Temp Pulse Resp B/P (MAP) Pulse Ox O2 Delivery O2 Flow Rate FiO2 03/25/18 10:00 98.0 96 18 178/100 (126) 98 Orders Orders Complete Blood Count With Diff (03/25/18 10:14) Comprehensive Metabolic Panel (03/25/18 10:14) Lipase (03/25/18 10:14) Sodium Chlor 0.9% 1000 Ml Inj (Ns 1000 M (03/25/18 10:15) Sodium Chlor 0.9% 1000 Ml Inj (Ns 1000 M (03/25/18 10:15) Metoclopramide Inj (Reglan Inj) (03/25/18 10:15) Potassium Chlor 10 Meq Premix (Kcl 10 Me (03/25/18 11:00) Pantoprazole Inj (Protonix Inj) (03/25/18 11:00) Labs Laboratory Tests Test 03/25/18 10:19 White Blood Count 11.1 TH/MM3 Red Blood Count 5.63 MIL/MM3 Hemoglobin 17.6 GM/DL Hematocrit 52.2 % Mean Corpuscular Volume 92.7 FL Mean Corpuscular Hemoglobin 31.2 PG Mean Corpuscular Hemoglobin Concent 33.7 % Red Cell Distribution Width 12.4 % Platelet Count 248 TH/MM3 Mean Platelet Volume 8.0 FL Neutrophils (%) (Auto) 84.9 % Lymphocytes (%) (Auto) 9.6 % Monocytes (%) (Auto) 5.2 % Eosinophils (%) (Auto) 0.1 % Basophils (%) (Auto) 0.2 % Neutrophils # (Auto) 9.4 TH/MM3 Lymphocytes # (Auto) 1.1 TH/MM3 Monocytes # (Auto) 0.6 TH/MM3 Eosinophils # (Auto) 0.0 TH/MM3 Basophils # (Auto) 0.0 TH/MM3 CBC Comment DIFF FINAL Differential Comment Blood Urea Nitrogen 11 MG/DL Creatinine 1.10 MG/DL Random Glucose 143 MG/DL Total Protein 8.3 GM/DL Albumin 4.5 GM/DL Calcium Level 9.5 MG/DL Alkaline Phosphatase 85 U/L Aspartate Amino Transf (AST/SGOT) 17 U/L Alanine Aminotransferase (ALT/SGPT) 50 U/L Total Bilirubin 2.2 MG/DL Sodium Level 133 MEQ/L Potassium Level 3.1 MEQ/L Chloride Level 95 MEQ/L Carbon Dioxide Level 27.8 MEQ/L Anion Gap 10 MEQ/L Estimat Glomerular Filtration Rate 80 ML/MIN Lipase 86 U/L [facility] Medical Decision Making Medical Screen Exam Complete: Yes Emergency Medical Condition: Yes Medical Record Reviewed: Yes Differential Diagnosis Differential includes cyclical vomiting, gastroparesis, acute gastritis Narrative Course Patient has had recurrent attacks like this. He says he has not been smoking marijuana recently. His hemoglobin is 17.6 with a white count of 11,000. Sodium is 133 with potassium of 3.1. Glucose is 143. He has been given IV fluids. Diagnosis Primary Impression: Acute vomiting Scripts Promethazine Supp (Phenergan Supp) 25 Mg Supp 25 MG RECTAL Q4H Y for NAUSEA OR VOMITING, #6 SUPP 0 Refills Prov: Naif García MD 03/25/18 Promethazine (Phenergan) 25 Mg Tablet 25 MG PO Q6H Y for NAUSEA OR VOMITING, #12 TAB 0 Refills Prov: Naif García MD 03/25/18 Disposition: 01 DISCHARGE HOME Condition: Stable Naif García MD Mar 25, 2018 10:17
[2018-03-25 10:23] LABS: AUTOMATED NEUTROPHIL # 9.4 TH/MM3 (1.8-7.7); BASOPHIL % 0.2 % (0.0-2.0); EOSINOPHIL % 0.1 % (0.0-4.0); HEMATOCRIT 52.2 % (39.0-51.0); HEMOGLOBIN 17.6 GM/DL (13.0-17.0); LYMPH % 9.6 % (9.0-44.0); LYMPHOCYTE # 1.1 TH/MM3 (1.0-4.8); MEAN CELL VOLUME 92.7 FL (80.0-100.0); MEAN CORPUSCULAR HEMOGLOBIN 31.2 PG (27.0-34.0); MEAN CORPUSCULAR HGB CONC 33.7 % (32.0-36.0); MONO % 5.2 % (0.0-8.0); MONOCYTE # 0.6 TH/MM3 (0-0.9); NEUT % 84.9 % (16.0-70.0); PLATELET COUNT 248 TH/MM3 (150-450); RED BLOOD COUNT 5.63 MIL/MM3 (4.50-5.90); RED CELL DISTRIBUTION WIDTH 12.4 % (11.6-17.2); WHITE BLOOD COUNT 11.1 TH/MM3 (4.0-11.0)
[2018-03-25 10:32] LABS: CHLORIDE 95 MEQ/L (98-107); SODIUM (NA) 133 MEQ/L (136-145)
[2018-03-25 10:35] LABS: CALCIUM 9.5 MG/DL (8.5-10.1)
[2018-03-25 10:36] LABS: ALBUMIN 4.5 GM/DL (3.4-5.0); BICARBONATE 27.8 MEQ/L (21.0-32.0); BLOOD UREA NITROGEN 11 MG/DL (7-18); GLUCOSE,RANDOM 143 MG/DL (74-106)
[2018-03-25 10:39] LABS: ALT (GPT) 50 U/L (12-78); AST (GOT) 17 U/L (15-37); GLOMERULAR FILTRATION RATE 80 ML/MIN (>89)
[2018-03-25 10:40] LABS: TOTAL BILIRUBIN ADULT 2.2 MG/DL (0.2-1.0); TOTAL PROTEIN 8.3 GM/DL (6.4-8.2)
[2018-03-25 10:41] LABS: ALKALINE PHOSPHATASE 85 U/L (45-117)
[2018-03-25] MEDS ORDERED: PANTOPRAZOLE SODIUM 40 MG VIAL IV PUSH ONE (11:00)
[2018-03-25] MEDS ORDERED: POTASSIUM CHLOR 10 MEQ PREMIX 100 ML IV ONE (11:00)
[2018-03-25] MEDS ORDERED: PROM1SUP7 RECTAL (11:31)
[2018-03-25] MEDS ORDERED: PROM25TA10 PO (11:31)
[2018-03-25 12:11] VITALS: BP 120/64; PULSE 94; RESP 16; O2SAT 100
== END 2018-03-25 12:23 | disposition home or self-care (01) ==
LOC: PHED 09:57
DX: R11.2 Nausea with vomiting, unspecified (principal); R10.13 Epigastric pain; J45.909 Unspecified asthma, uncomplicated; K21.9 Gastro-esophageal reflux disease without esophagitis; F17.200 Nicotine dependence, unspecified, uncomplicated; F12.90 Cannabis use, unspecified, uncomplicated; Z88.0 Allergy status to penicillin; Z88.8 Allergy status to other drugs, medicaments and biological substances
CPT/HCPCS: 80053; 83690; 85025; 96361; 96365; 96375; 96376; 99284; C9113; J2765; J3480; J7030

== ENCOUNTER 2018-05-24 03:16 | Observation (INO) ==
[2018-05-24] MEDS ORDERED: Haloperidol Inj 5 MG/ML Ampul IV.PUSH ONE ×2 (05:06→06:53)
[2018-05-24] MEDS ORDERED: Morphine Sulfate Inj 2 MG/ML Vial IV.PUSH ONE (05:06)
--- NOTE | 2018-05-24 05:12 | ED ---
HPI General Chief complaint: Nausea/Vomiting/Diarrhea Stated complaint: vomiting x 3 days Time Seen by Provider: 05/24/18 04:56 Source: patient Mode of arrival: ambulatory Limitations: no limitations History of Present Illness HPI Narrative: 27-year-old male who presents with 3 days of constant nausea and vomiting. He has been diagnosed with gastroparesis in the past but told by other doctors that this diagnosis was an error. However this episode feels identical to prior episodes which were previously identified his gastroparesis. He states he has had multiple CT scans of his abdomen and pelvis during these episodes and they never revealed any acute pathology. He has a history of cholecystectomy and hiatal hernia repair. He is unable to take fluids or food as oral intake due to his nausea and vomiting. His last bowel movement was 3 days ago. But he is still passing gas however. No fevers or chills, no headache, no chest pain, neck pain, no rash. His abdominal pain is epigastric in location. It is constant. He rates it as moderate to severe. It feels identical to prior episodes of similar symptoms. There is no blood in his vomitus or bowel movements. MD complaint: nausea, vomiting and abdominal pain Description of Vomiting: continuous and other (Yellow) Description of Diarrhea: none Location of pain: epigastric Severity: similar to previous episodes Quality: cramping Pain Consistency: constant Relieving factors: none Exacerbating factors: eating and vomiting Context: marijuana use Related Data Allergies Allergy/AdvReac Type Severity Reaction Status Date / Time amoxicillin Allergy Severe rash Verified 03/25/18 10:02 ondansetron Allergy Intermediate Nausea/Vomi Verified 03/25/18 10:02 ting Review of Systems ROS: all other systems reviewed are negative Cardiovascular Denies chest pain, Denies syncope and Denies palpitations Gastrointestinal Reports abdominal pain, Denies diarrhea, Reports nausea and Reports vomiting [facility] Medical History Medical History Abdominal hernia (Acute) Gastritis (Acute) Gastroparesis (Acute) Surgical History Surgical History Hx of cholecystectomy (Acute) Social History Social History Smoking Status: Current every day smoker Tobacco Type: Cigarettes How Often Do You Have a Drink Containing Alcohol: Monthly or less Recent Travel in [facility] within the Last 8 Weeks: No Substance Abuse Detail Marijuana: Substance Use Status: Active Route Used Substance Abuse: Inhalation Immunization History Tetanus Immunization: <5 Years Hx Influenza Vaccine This Season: Yes Exam Narrative Exam Narrative: GENERAL: 27-year-old man who appears well-nourished and well- developed lying on stretcher in a darkened room, during exam patient began retching and then produced a small amount of yellow mucous consistency vomitus SKIN: Focused skin assessment warm/dry. HEAD: Atraumatic. Normocephalic. EYES: Pupils equal and round. No scleral icterus. No injection or drainage. ENT: No nasal bleeding or discharge. Mucous membranes pink and moist. NECK: Trachea midline. No JVD. CARDIOVASCULAR: Regular rate and rhythm. No murmur appreciated. RESPIRATORY: No accessory muscle use. Clear to auscultation. Breath sounds equal bilaterally. GASTROINTESTINAL: Abdomen soft, moderately tender in epigastrium, nondistended. Hepatic and splenic margins not palpable. MUSCULOSKELETAL: No obvious deformities. No clubbing. No cyanosis. No edema. NEUROLOGICAL: Awake and alert. No obvious cranial nerve deficits. Motor grossly within normal limits. Normal speech. PSYCHIATRIC: Appropriate mood and affect; insight and judgment normal. Appears to be in mild to moderate distress due to his discomfort. Course Reevaluation(s) Reevaluation #1: Informed by nurse at this time of patient's potassium at 2.9. I ordered 3 doses of 10 mEq of potassium chloride in 100 mL normal saline to be administered to the patient for potassium repletion. Time: 06:12 Reevaluation #2: Reevaluate patient at this time. He is resting quietly and darkened room on stretcher in no acute distress. He states medications he received gave him partial relief but he still feels like he is unable to eat or drink. Nurse is starting infusion of IV potassium at this time. Will order Zofran IV for additional antiemetic. Time: 06:53 Initial Documented Vital Signs Temperature 97.6 F 05/24/18 03:25 Pulse Rate 79 05/24/18 03:25 Blood Pressure 144/83 H 05/24/18 03:25 Pulse Oximetry 99 05/24/18 03:25 Last Documented Vital Signs Temperature 97.6 F 05/24/18 03:25 Pulse Rate 64 05/24/18 07:08 Respiratory Rate 18 05/24/18 07:08 Blood Pressure 112/57 L 05/24/18 07:08 Pulse Oximetry 99 05/24/18 07:08 Medical Decision Making MDM Narrative Medical decision making narrative: Patient symptoms seem consistent with his prior episodes of gastroparesis. He has had many numerous prior episodes and is even been worked up with CT scans during these episodes but this advanced imaging never yielded a diagnosis. Therefore to spare him the additional radiation hazard and expense of another CT of his abdomen and pelvis I will instead rule out obstruction and free air with an abdominal series. We will check basic labs. Will provide IV fluids for hydration. Since the patient is allergic to Zofran I will order Haldol IV with Benadryl IV to prevent dystonic reaction. Will also give modest dose of IV morphine for patient's abdominal discomfort. If patient is unable to tolerate oral liquids will plan for admission for treatment of symptoms. Differential Diagnosis Differential Diagnosis: Gastroparesis versus cannabis hyperemesis syndrome versus partial obstruction versus full obstruction versus hollow viscus perforation versus pancreatitis. Also consider DKA versus electrolyte disorder versus dehydration versus AK I. Doubt ACS as cause of symptoms. Doubt AAA or aortic dissection as cause of symptoms. Medical Records Medical records reviewed: Yes I reviewed the patient's medical records. Lab Data Lab results reviewed: Yes I reviewed the patient's lab results. Lab results narrative: Patient has significant hypokalemia. I believe his white blood cell count is likely reactive rather than sign of infectious etiology. Result diagrams: 05/24/18 04:45 05/24/18 04:45 Lab Results 05/24/18 05/24/18 Range/Units 04:45 04:45 CBC w Diff Slide review pending WBC 19.3 H (4.0-11.0) th/mm3 RBC 6.00 H (4.50-5.90) mil/mm3 Hgb 18.9 H (13.0-17.0) gm/dL Hct 56.3 H (39.0-51.0) % MCV 93.8 (80.0-100.0) fL MCH 31.5 (27.0-34.0) pg MCHC 33.6 (32.0-36.0) % RDW 13.3 (11.6-17.2) % Plt Count 210 (150-450) th/mm3 MPV 9.1 (7.0-11.0) fL Neut % (Auto) 82.6 H (16.0-70.0) % Lymph % (Auto) 6.3 L (9.0-44.0) % [place] % (Auto) 7.8 (0.0-8.0) % Eos % (Auto) 0.1 (0.0-4.0) % Baso % (Auto) 3.2 H (0.0-2.0) % Neut # (Auto) 16.0 H (1.8-7.7) th/mm3 Lymph # (Auto) 1.2 (1.0-4.8) th/mm3 [place] # (Auto) 1.5 H (0.0-0.9) th/mm3 Eos # (Auto) 0.0 (0.0-0.4) th/mm3 Baso # (Auto) 0.6 H (0.0-0.2) th/mm3 WBC Differential . Diff Scan Auto diff confirmed Differential Comment . Sodium 132 L (136-145) meq/L Potassium 2.9 L* (3.5-5.1) meq/L Chloride 91 L (98-107) meq/L Carbon Dioxide 31.9 (21.0-32.0) meq/L Anion Gap 9 (5-15) meq/L BUN 15 (7-18) mg/dL Creatinine 1.10 (0.60-1.30) mg/dL Estimated GFR 80 L (>89) mL/min Random Glucose 119 H (74-106) mg/dL Calcium 10.3 H (8.5-10.1) mg/dL Total Bilirubin 3.1 H (0.2-1.0) mg/dL AST 18 (15-37) U/L ALT 37 (12-78) U/L Alkaline Phosphatase 82 (45-117) U/L Total Protein 9.5 H (6.4-8.2) g/dL Albumin 5.4 H (3.4-5.0) g/dL Imaging Data Radiologist's impression: Abdomen X-Ray 05/24/18 05:06 CONCLUSION: No acute abdominal abnormality is identified. Discharge Plan Discharge Disposition Patient Disposition: 30 Still Patient Physicians Team ED Provider: Bernard Spence Primary Care Provider: Primary Care Physici,No Attending Provider: Enma Zepeda Status ED Status: Admitted Observation Patient
[2018-05-24 05:15] LABS: Baso # (Auto) 0.6 th/mm3 (0.0-0.2); Baso % (Auto) 3.2 % (0.0-2.0); Eos % (Auto) 0.1 % (0.0-4.0); Hematocrit 56.3 % (39.0-51.0); Hemoglobin 18.9 gm/dL (13.0-17.0); Lymph # (Auto) 1.2 th/mm3 (1.0-4.8); Lymph % (Auto) 6.3 % (9.0-44.0); Mean Corpuscular HGB Conc 33.6 % (32.0-36.0); Mean Corpuscular Hemoglobin 31.5 pg (27.0-34.0); Mean Corpuscular Volume 93.8 fL (80.0-100.0); Mean Platelet Volume 9.1 fL (7.0-11.0); Mono # (Auto) 1.5 th/mm3 (0.0-0.9); Mono % (Auto) 7.8 % (0.0-8.0); Neut % (Auto) 82.6 % (16.0-70.0); Platelet Count 210 th/mm3 (150-450); Red Cell Distribution Width 13.3 % (11.6-17.2); White Blood Count 19.3 th/mm3 (4.0-11.0)
--- NOTE | 2018-05-24 05:49 | XR ---
EXAM DATE: 05/24/2018 5:45 AM EDT AGE/SEX: 27 years / Male INDICATIONS: Nausea, abdominal pain for 3 days CLINICAL DATA: This is the patient's initial encounter. Patient reports that signs and symptoms have been present for 3 days and indicates a pain score of 8/10. MEDICAL/SURGICAL HISTORY: None. Cholecystectomy. COMPARISON: [facility], CT ABDOMEN & PELVIS W CONTRAST, 01/26/2018. . FINDINGS: Supine and upright views of the abdomen demonstrate a nonobstructive bowel gas pattern. Upright image demonstrates no free intraperitoneal air or significant air-fluid levels. No organomegaly or concern ing calcifications are identified. The visualized bones and lung bases demonstrate no acute finding. CONCLUSION: No acute abdominal abnormality is identified. Electronically signed by: Cayetano Aguirre MD 05/24/2018 5:48 AM EDT
[2018-05-24 06:07] LABS: Alanine Aminotransferase 37 U/L (12-78); Albumin 5.4 g/dL (3.4-5.0); Alkaline Phosphatase 82 U/L (45-117); Aspartate Aminotransferase 18 U/L (15-37); Blood Urea Nitrogen 15 mg/dL (7-18); Calcium 10.3 mg/dL (8.5-10.1); Chloride 91 meq/L (98-107); Glomerular Filtration Rate 80 mL/min (>89); Glucose,Random 119 mg/dL (74-106); Sodium 132 meq/L (136-145)
[2018-05-24 06:08] LABS: Anion Gap 9 meq/L (5-15); Carbon Dioxide 31.9 meq/L (21.0-32.0); Total Protein 9.5 g/dL (6.4-8.2)
[2018-05-24 06:09] LABS: Potassium 2.9 meq/L (3.5-5.1)
[2018-05-24] MEDS ORDERED: Sod Chloride 0.9% Inj 1,000 ML IV.SIG ONE (06:50)
[2018-05-24] MEDS: Potassium Chlor 10 mEq Premix 10 MEQ/100 ML PIGGYBACK IV.SIG SCH ×3 (06:54→09:10)
[2018-05-24] MEDS ORDERED: Temazepam 15 MG Capsule PO PRN (08:03)
[2018-05-24] MEDS ORDERED: Bisacodyl 10 MG Supp RECTAL PRN (08:03)
[2018-05-24] MEDS ORDERED: Acetaminophen 325 MG Tablet PO PRN (08:03)
[2018-05-24] MEDS ORDERED: Sod Chloride 0.9% Inj 2,000 ML IV.SIG ONE (08:59)
--- NOTE | 2018-05-24 09:07 | P.HPIM ---
History of Present Illness Primary Care Physician: No Primary Care Physician Chief Complaint: Nausea and vomiting History of Present Illness: Patient is a 27-year-old gentleman with recurrent episodes of abdominal pain and nausea and vomiting. He comes to the emergency room complaining of the same and no bowel movement for the last 3 days. Patient still passing flatus. He notes no fevers or chills. No hematemesis. Patient is also found in the emergency room to have hypokalemia of 2.9. The nausea vomiting quite severe and he is unable to keep any food or liquids down. Patient was given IV fluids and antiemetics in the emergency room which seemed to help. He is now recommended for observation due to these issues - Diagnosis (1) Hypokalemia (2) Leukocytosis (3) Nausea & vomiting (4) Hypercalcemia (5) Hyponatremia Review of Systems All other systems reviewed negative except as stated in HPI PMFSH - History History Provided By: Patient - Medical History Medical History: Medical History (Last Reviewed 05/24/18 @ 09:06 by Enma Zepeda MD) Abdominal hernia Gastritis Gastroparesis Hernia, inguinal - Surgical History Surgical History: Surgical History (Last Reviewed 05/24/18 @ 09:06 by Enma Zepeda MD) Hx of cholecystectomy - Family History Family History: Family History (Last Reviewed 05/24/18 @ 09:06 by Enma Zepeda MD) Other No family history of disorders - Tobacco History Tobacco Use In Past 30 Days: Yes Smoking Status: Current every day smoker Tobacco Type: Cigarettes - Alcohol History How Often Do You Have a Drink Containing Alcohol: Monthly or less - Substance Use Type Marijuana Status: Active Route Used: Inhalation - Travel History Recent Travel in the [facility] Within the Last 8 Weeks: No - Immunization History Tetanus Immunization: <5 Years Hx Influenza Vaccine This Season: Yes Medications and Allergies Active Medications: Active Medications Acetaminophen (Tylenol) 650 mg PO Q4H PRN PRN Reason: Temp > 100.4 Al Hydroxide/Mg Hydroxide (Milk Of Magnesia Liq) 30 ml PO Q12H PRN PRN Reason: Mild Constipation Bisacodyl (Dulcolax Supp) 10 mg RECTAL DAILY PRN PRN Reason: SEVERE CONSITIPATION Potassium Chloride (Kcl 10 Meq Premix Inj) 10 meq in 100 mls @ 100 mls/hr IV.SIG Q1H [facility] Stop: 05/24/18 09:14 Last Admin: 05/24/18 07:59 Dose: 100 mls/hr Lactated Ringer's (Lr 1000 Ml Inj) 1,000 mls @ 100 mls/hr IV.CONT .Q10H [facility] Lactulose (Lactulose Liq) 30 ml PO DAILY PRN PRN Reason: SEVERE CONSITIPATION Senna/Docusate Sodium (Alie-Colace) 1 tab PO BID [facility] Sennosides (Senokot) 17.2 mg PO Q12H PRN PRN Reason: Moderate Constipation Temazepam (Restoril) 15 mg PO HS PRN PRN Reason: INSOMNIA Allergies Allergy/AdvReac Type Severity Reaction Status Date / Time amoxicillin Allergy Severe rash Verified 03/25/18 10:02 ondansetron Allergy Intermediate Nausea/Vomi Verified 03/25/18 10:02 ting Exam Vital signs: Vital Signs 05/24/18 03:25 05/24/18 05:26 05/24/18 05:31 Temperature 97.6 F Pulse Rate 79 69 Respiratory Rate 20 Blood Pressure 144/83 H 134/71 Pulse Oximetry 99 94 L 94 L 05/24/18 05:32 05/24/18 07:08 05/24/18 08:23 Temperature Pulse Rate 64 84 Respiratory Rate 18 18 Blood Pressure 112/57 L 116/75 Pulse Oximetry 94 L 99 97 Intake & Output 05/23/18 05/24/18 05/24/18 18:59 06:59 18:59 Intake Total 100 / 100 Balance 100 / 100 Weight 87.1 kg Intake: IV 100 / 100 KCl 10 mEq Premix Inj 10 meq In 100 / 100 100 ml @ 100 mls/hr IV.SIG Q1H [facility] Rx#:[id number] Narrative: GENERAL: Well-nourished, well-developed patient. SKIN: Warm and dry. Dry mucous membranes HEAD: Normocephalic. EYES: No scleral icterus. No injection or drainage. NECK: Supple, trachea midline. No JVD or lymphadenopathy. CARDIOVASCULAR: Sinus tachycardia without murmurs, gallops, or rubs. RESPIRATORY: Breath sounds equal bilaterally. No accessory muscle use. GASTROINTESTINAL: Hypoactive, nontender MUSCULOSKELETAL: No cyanosis, or edema. BACK: Nontender without obvious deformity. No CVA tenderness. NEUROLOGICAL: Awake and alert. Cranial nerves II through XII intact. Motor and sensory grossly within normal limits. Five out of 5 muscle strength in all muscle groups. Normal speech. Results - Labs CBC & Chem 7: 05/24/18 04:45 05/24/18 04:45 Labs: Short CBC 05/24/18 Range/Units 04:45 WBC 19.3 H (4.0-11.0) th/mm3 Hgb 18.9 H (13.0-17.0) gm/dL Hct 56.3 H (39.0-51.0) % Plt Count 210 (150-450) th/mm3 BMP 05/24/18 04:45 Sodium 132 L Potassium 2.9 L* Chloride 91 L Carbon Dioxide 31.9 BUN 15 Creatinine 1.10 Calcium 10.3 H Liver Function 05/24/18 Range/Units 04:45 Total Bilirubin 3.1 H (0.2-1.0) mg/dL AST 18 (15-37) U/L ALT 37 (12-78) U/L Alkaline Phosphatase 82 (45-117) U/L Albumin 5.4 H (3.4-5.0) g/dL - Imaging Impressions Abdomen X-Ray 05/24/18 05:06 CONCLUSION: No acute abdominal abnormality is identified. Caprini VTE Risk Assessment Caprini VTE Risk Assessment: No/Low Risk (score <= 1) Caprini Risk Assessment Model: Point Value = 1 Point Value = 2 Point Value = 3 Point Value = 5 Age 41-60 Minor surgery BMI > 25 kg/m2 Swollen legs Varicose veins or History of unexplained or recurrent spontaneous Oral contraceptives or hormone replacement Sepsis (< 1 month) Serious lung disease, including pneumonia (< 1 month) Abnormal pulmonary function Acute myocardial infarction Congestive heart failure (< 1 month) History of inflammatory bowel disease Medical patient at bed rest Age 61-74 Arthroscopic surgery Major open surgery (> 45 min) Laparoscopic surgery (> 45 min) Malignancy Confined to bed (> 72 hours) Immobilizing plaster cast Central venous access Age >= 75 History of VTE Family history of VTE Factor V Leiden Prothrombin [id number] Lupus anticoagulant Anticardiolipin antibodies Elevated serum homocysteine Heparin-induced thrombocytopenia Other congenital or acquired thrombophilia Stroke (< 1 month) Elective arthroplasty Hip, pelvis, or leg fracture Acute spinal cord injury (< 1 month) Prophylaxis Regimen: Total Risk Factor Score Risk Level Prophylaxis Regimen 0-1 Low Early ambulation 2 Moderate Order ONE of the following: *Sequential Compression Device (SCD) *Heparin 5000 units SQ BID 3-4 Higher Order ONE of the following medications: *Heparin 5000 units SQ TID *Enoxaparin/Lovenox 40 mg SQ daily (WT < 150 kg, CrCl > 30 mL/min) *Enoxaparin/Lovenox 30 mg SQ daily (WT < 150 kg, CrCl > 10-29 mL/min) *Enoxaparin/Lovenox 30 mg SQ BID (WT < 150 kg, CrCl > 30 mL/min) AND/OR *Sequential Compression Device (SCD) 5 or more Highest Order ONE of the following medications: *Heparin 5000 units SQ TID (Preferred with Epidurals) *Enoxaparin/Lovenox 40 mg SQ daily (WT < 150 kg, CrCl > 30 mL/min) *Enoxaparin/Lovenox 30 mg SQ daily (WT < 150 kg, CrCl > 10-29 mL/min) *Enoxaparin/Lovenox 30 mg SQ BID (WT < 150 kg, CrCl > 30 mL/min) AND *Sequential Compression Device (SCD) Assessment and Plan - Assessment (1) Hypokalemia Code(s): E87.6 - Hypokalemia Status: Acute Plan: We will replace, follow-up magnesium and calcium levels (2) Leukocytosis Code(s): D72.829 - Elevated white blood cell count, unspecified Status: Acute Plan: Rule out urine infection, patient also appears quite volume contracted (3) Nausea & vomiting Code(s): R11.2 - Nausea with vomiting, unspecified Status: Acute Plan: Patient appears severely dehydrated We will continue with IV hydration aggressively Antiemetics (4) Hypercalcemia Code(s): E83.52 - Hypercalcemia Status: Acute Plan: We will follow clinically with IV hydration (5) Hyponatremia Code(s): E87.1 - Hypo-osmolality and hyponatremia Status: Acute Plan: Continue with IV hydration, patient appears volume depleted
[2018-05-24] MEDS: Senna/Docusate Sodium 8.6/50 MG Tablet PO SCH ×2 (09:44→20:19)
[2018-05-24 11:40] LABS: Chloride 100 meq/L (98-107); Potassium 3.4 meq/L (3.5-5.1); Sodium 138 meq/L (136-145)
[2018-05-24 11:43] LABS: Anion Gap 6 meq/L (5-15); Blood Urea Nitrogen 13 mg/dL (7-18); Calcium 8.2 mg/dL (8.5-10.1); Glucose,Random 105 mg/dL (74-106); Magnesium 1.9 mg/dL (1.5-2.5)
[2018-05-24 11:47] LABS: Glomerular Filtration Rate Greater Than 89 mL/min (>89)
[2018-05-24] MEDS ORDERED: Potassium Bicarbonate 25 MEQ Effervescent Tablet PO ONE (16:00)
[2018-05-24 20:29] LABS: Bilirubin,Urine Negative (Negative); Clarity,Urine Clear (Clear); Color,Urine Yellow (Yellw/Straw); Glucose,Urine (UA) Negative (Negative); Leukocyte Esterase,Urine Negative (Negative); Nitrite,Urine Negative (Negative); PH,Urine 7.5 (5.0-8.5); Specific Gravity,Urine Less/Equal 1.005 (1.002-1.035)
[2018-05-24 20:35] LABS: Squamous Epithelial Cell,Urine 0-5 /hpf (0-5)
[2018-05-25 07:54] LABS: Hematocrit 47.1 % (39.0-51.0); Hemoglobin 15.7 gm/dL (13.0-17.0); Mean Corpuscular HGB Conc 33.3 % (32.0-36.0); Mean Corpuscular Hemoglobin 31.2 pg (27.0-34.0); Mean Corpuscular Volume 93.5 fL (80.0-100.0); Mean Platelet Volume 9.2 fL (7.0-11.0); Platelet Count 173 th/mm3 (150-450); Red Blood Count 5.04 mil/mm3 (4.50-5.90); Red Cell Distribution Width 13.5 % (11.6-17.2); White Blood Count 7.2 th/mm3 (4.0-11.0)
[2018-05-25 08:02] LABS: Chloride 101 meq/L (98-107); Potassium 3.9 meq/L (3.5-5.1); Sodium 138 meq/L (136-145)
[2018-05-25 08:05] LABS: Anion Gap 5 meq/L (5-15); Calcium 8.7 mg/dL (8.5-10.1); Carbon Dioxide 31.8 meq/L (21.0-32.0); Glucose,Random 93 mg/dL (74-106)
[2018-05-25 08:06] LABS: Blood Urea Nitrogen 10 mg/dL (7-18)
[2018-05-25 08:09] LABS: Glomerular Filtration Rate Greater Than 89 mL/min (>89)
[2018-05-25 10:36] VITALS: BP 170/103; PULSE 54; RESP 18; TEMP 96.3; O2SAT 100
--- NOTE | 2018-05-25 11:30 | P.PNIM ---
Subjective Interval history: Nausea and vomiting resolved. 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 Discussed with patient at length. Elect lites resolving discharge plans discussed with patient who is agreeable Physical Exam Vital signs: Vital Signs 05/24/18 12:00 05/24/18 16:00 05/24/18 20:00 Temperature 96.6 F L 96.6 F L 98 F Pulse Rate 72 73 68 Respiratory Rate 16 16 20 Blood Pressure 117/75 131/76 130/87 Pulse Oximetry 96 96 100 05/25/18 00:00 05/25/18 07:00 05/25/18 08:00 Temperature 96.8 F L 96.3 F L Pulse Rate 66 54 L Respiratory Rate 20 18 Blood Pressure 126/81 170/103 H Pulse Oximetry 98 75 L 100 Intake & Output 05/24/18 05/25/18 05/25/18 18:59 06:59 18:59 Intake Total 5630 / 5630 2120 / 2120 Output Total 550 / 550 2100 / 2100 Balance 5080 / 5080 20 / 20 Weight 88.7 kg 91.5 kg Intake: IV 3300 / 3300 2000 / 2000 LR 1000 mL Inj 1,000 ML @ 100 2000 / 2000 mls/hr IV.CONT .Q10H [facility] Rx#: [id number] KCl 10 mEq Premix Inj 10 meq In 200 / 200 100 ml @ 100 mls/hr IV.SIG Q1H [facility] Rx#:[id number] NS Inj 1,000 ML @ Wide Open IV. 1000 / 1000 SIG BOLUS ONE Rx#:[id number] Oral 2330 / 2330 120 / 120 Output: Urine 550 / 550 2100 / 2100 Other: # Voids 1 Date of Last Bowel Movement 05/22/18 05/24/18 # Bowel Movements 0 # Emeses 10 Narrative: GENERAL: Well-nourished, well-developed patient. SKIN: Warm and dry. HEAD: Normocephalic. EYES: No scleral icterus. No injection or drainage. NECK: Supple, trachea midline. No JVD or lymphadenopathy. CARDIOVASCULAR: Regular rate and rhythm without murmurs, gallops, or rubs. RESPIRATORY: Breath sounds equal bilaterally. No accessory muscle use. GASTROINTESTINAL: Abdomen soft, non-tender, nondistended. MUSCULOSKELETAL: No cyanosis, or edema. BACK: Nontender without obvious deformity. No CVA tenderness. NEUROLOGICAL: Awake and alert. Cranial nerves II through XII intact. Motor and sensory grossly within normal limits. Five out of 5 muscle strength in all muscle groups. Normal speech. Results - Labs CBC & Chem 7: 05/25/18 06:23 05/25/18 06:23 Laboratory Results - last 24 hr 05/24/18 05/24/18 05/25/18 11:00 20:00 06:23 WBC RBC Hgb Hct MCV MCH MCHC RDW Plt Count MPV Sodium 138 138 Potassium 3.4 L 3.9 Chloride 100 D 101 Carbon Dioxide 32.0 31.8 Anion Gap 6 5 BUN 13 10 Creatinine 0.87 0.83 Estimated GFR Greater than 89 Greater than 89 Random Glucose 105 93 Calcium 8.2 L D 8.7 Magnesium 1.9 Urine Color Yellow Urine Clarity Clear Urine pH 7.5 Ur Specific [place] Less/equal 1.005 Urine Protein Negative Urine Glucose (UA) Negative Urine Ketones Negative Urine Occult Blood Negative Urine Nitrate Negative Urine Bilirubin Negative Urine Urobilinogen 1.0 Ur Leukocyte Esterase Negative Ur Squamous Epith Cells 0-5 Micro UA Comment Culture not ind Urine Culture Comments Culture not ind 05/25/18 06:23 WBC 7.2 RBC 5.04 Hgb 15.7 D Hct 47.1 MCV 93.5 MCH 31.2 MCHC 33.3 RDW 13.5 Plt Count 173 MPV 9.2 Sodium Potassium Chloride Carbon Dioxide Anion Gap BUN Creatinine Estimated GFR Random Glucose Calcium Magnesium Urine Color Urine Clarity Urine pH Ur Specific [place] Urine Protein Urine Glucose (UA) Urine Ketones Urine Occult Blood Urine Nitrate Urine Bilirubin Urine Urobilinogen Ur Leukocyte Esterase Ur Squamous Epith Cells Micro UA Comment Urine Culture Comments Assessment and Plan - Assessment (1) Hypokalemia Code(s): E87.6 - Hypokalemia Status: Acute Plan: Resolved (2) Leukocytosis Code(s): D72.829 - Elevated white blood cell count, unspecified Status: Acute Plan: Resolved, likely due to volume contraction (3) Nausea & vomiting Code(s): R11.2 - Nausea with vomiting, unspecified Status: Acute Plan: Probably due to hyperemesis cannabis syndrome Patient counseled (4) Hypercalcemia Code(s): E83.52 - Hypercalcemia Status: Acute Plan: Resolved (5) Hyponatremia Code(s): E87.1 - Hypo-osmolality and hyponatremia Status: Acute Plan: C resolved - Plan Discharge home Activity unrestricted Diet regular
== END 2018-05-25 11:48 | disposition home or self-care (01) ==
LOC: PH3 03:16 → PHEDA 03:16 → PHED 03:16 → PH3 10:00
PROVIDERS: ADMIT Hospitalist; ATTEND Hospitalist
DX: F12.90 Cannabis use, unspecified, uncomplicated; K29.00 Acute gastritis without bleeding; K31.84 Gastroparesis; E87.1 Hypo-osmolality and hyponatremia; E87.6 Hypokalemia; Z90.49 Acquired absence of other specified parts of digestive tract; E86.0 Dehydration; F17.210 Nicotine dependence, cigarettes, uncomplicated; D72.829 Elevated white blood cell count, unspecified; Z88.0 Allergy status to penicillin; E83.52 Hypercalcemia